=== PATIENT | female | born 1950 | race Two or more races ===

== ENCOUNTER → 2018-05-05 | Outpatient (CLI) | payer OTHER | LOC: BRMIMAGING 11:21 | PROVIDERS: ATTEND Internal Medicine | DX: Z13.820 Encounter for screening for osteoporosis (principal); M85.89 Other specified disorders of bone density and structure, multiple sites; M19.042 Primary osteoarthritis, left hand; M19.041 Primary osteoarthritis, right hand; M20.12 Hallux valgus (acquired), left foot; M19.072 Primary osteoarthritis, left ankle and foot; M05.9 Rheumatoid arthritis with rheumatoid factor, unspecified | CPT/HCPCS: 73130-PO; 73630-PO ==